=== PATIENT | male | born 1965 | race Two or more races ===

== ENCOUNTER 2025-05-31 10:22 | Inpatient (IN) | payer OTHER ==
[~2025-05-31] VITALS: Ht 165.1 cm; Wt 72.0 kg
[~2025-05-31 10:22] MED LIST: AMLO-257 PO
[2025-05-31 13:34] LABS: PLATELET COUNT (AUTO) 239 K/uL (150-450); RED BLOOD CELL COUNT(AUTO) 5.19 MIL/uL (4.50-5.90); RED CELL DISTRIBUTION WIDTH 14.2 % (11.5-14.5); WHITE BLOOD COUNT (AUTO) 4.9 K/uL (4.5-11.0)
[2025-05-31 13:59] LABS: CALCIUM, TOTAL 8.7 mg/dL (8.8-10.5); CREATININE 0.66 mg/dL (0.60-1.30); GLOMERULAR FILTR. RATE CALC > 60 mL/min (>60); GLUCOSE,RANDOM 100 mg/dL (70-110); SODIUM SERUM 140 mmol/L (136-145); UREA NITROGEN, BLOOD 11 mg/dL (7-18)
[2025-05-31 14:08] LABS: TROPONIN I-HIGH SENSITIVITY 34 ng/L (<76)
[2025-05-31] MEDS ORDERED: ZOLPIDEM TARTRATE 5 MG TABLET PO PRN (14:45)
[2025-05-31] MEDS ORDERED: MAGNESIUM HYDROXIDE SUSPENSION 30 ML UDCUP PO PRN (14:45)
[2025-05-31] MEDS ORDERED: ACETAMINOPHEN 325 MG TABLET PO PRN (14:45)
[2025-05-31 15:20] LABS: APPEARANCE,URINE CLEAR (CLEAR); GLUCOSE, URINE (UA) NEGATIVE (NEGATIVE); LEUKOCYTE ESTERASE ,URINE NEGATIVE (NEGATIVE); NITRATE,URINE NEGATIVE (NEGATIVE); OCCULT BLOOD,URINE NEGATIVE (NEGATIVE); SPECIFIC GRAVITIY, URINE 1.008 (1.003-1.030)
[2025-05-31] MEDS: LOSARTAN POTASSIUM 25 MG TABLET PO SCH (15:51)
[2025-05-31 16:01] VITALS: PULSE 74; RESP 18; O2SAT 98
[2025-05-31] MEDS: SODIUM CHLORIDE 3% 15 ML NEB SOLUTION NEB ONE (16:01)
[2025-05-31 21:44] VITALS: BP 135/90; PULSE 71; RESP 20; TEMP 98.2; O2SAT 97
[2025-06-01 04:43] VITALS: BP 130/78; PULSE 85; RESP 18; TEMP 97.9; O2SAT 96
[2025-06-01 08:57] VITALS: BP 135/87; PULSE 70; RESP 20; TEMP 98; O2SAT 96
[2025-06-01 13:01] LABS: MTB PCR w/Rif. Resistance-SPUT NOT DETECTED (Not Detectd)
[2025-06-01 17:25] LABS: MTB PCR w/Rif. Resistance-SPUT NOT DETECTED (Not Detectd)
[2025-06-01 20:00] VITALS: BP 145/81; PULSE 74; RESP 18; TEMP 98.2; O2SAT 97
[2025-06-02 08:59] VITALS: BP 149/84; PULSE 86; RESP 18; TEMP 98.2; O2SAT 100
[2025-06-02 19:50] VITALS: BP 157/83; PULSE 85; RESP 20; TEMP 98.2; O2SAT 95
[2025-06-03 05:46] VITALS: BP 140/88; PULSE 75; RESP 18; TEMP 97.9; O2SAT 97
[2025-06-03 07:51] VITALS: BP 141/79; PULSE 79; RESP 18; TEMP 98.1; O2SAT 96
[2025-06-03 16:29] VITALS: BP 120/87; PULSE 79; RESP 18; TEMP 98.4; O2SAT 97
[2025-06-03 19:47] VITALS: BP 145/87; PULSE 73; RESP 18; TEMP 97.9; O2SAT 97
[2025-06-04 05:49] VITALS: BP 136/84; PULSE 68; RESP 18; TEMP 97.3; O2SAT 96
[2025-06-04 07:04] LABS: PLATELET COUNT (AUTO) 240 K/uL (150-450); RED BLOOD CELL COUNT(AUTO) 5.27 MIL/uL (4.50-5.90); RED CELL DISTRIBUTION WIDTH 13.8 % (11.5-14.5); WHITE BLOOD COUNT (AUTO) 7.0 K/uL (4.5-11.0)
[2025-06-04 07:25] LABS: CREATININE 0.76 mg/dL (0.60-1.30); GLOMERULAR FILTR. RATE CALC > 60 mL/min (>60); GLUCOSE,RANDOM 98 mg/dL (70-110); SODIUM SERUM 139 mmol/L (136-145); UREA NITROGEN, BLOOD 15 mg/dL (7-18)
[2025-06-04 07:51] LABS: CALCIUM, TOTAL 8.6 mg/dL (8.8-10.5)
[2025-06-04 08:00] VITALS: BP 152/90; PULSE 81; RESP 19; TEMP 97; O2SAT 99
[2025-06-04] MEDS: HEPARIN SODIUM,PORCINE 5,000 UNITS/ML VIAL SQ SCH (15:55)
[2025-06-04 20:00] VITALS: BP 148/78; PULSE 80; RESP 20; TEMP 98.2; O2SAT 97
[2025-06-05 04:00] VITALS: BP 132/90; PULSE 86; RESP 18; TEMP 97.9; O2SAT 97
[2025-06-05 08:00] VITALS: BP 137/84; PULSE 68; RESP 20; TEMP 97.9; O2SAT 95
[2025-06-05] MEDS ORDERED: LOSA-381 PO (17:09)
[2025-06-05 19:47] VITALS: BP 152/80; PULSE 84; RESP 18; TEMP 98.6; O2SAT 97
[2025-06-06 06:07] LABS: QUANTIFERON+, Nil Value 0.04 IU/mL; QUANTIFERON+,Mitogen Value >10.00 IU/mL; QUANTIFERON+,TB1 Antigen Value 4.51 IU/mL; QUANTIFERON+,TB2 Antigen Value 4.53 IU/mL; QUANTIFERON, TB GOLD PLUS Positive (Negative)
== END 2025-06-05 20:48 | DRG 179 ==
LOC: EMS 10:24 → EDH 14:45 → 6S 21:22
PROVIDERS: ADMIT Internal Medicine; ATTEND Internal Medicine
DX: R76.11 Nonspecific reaction to tuberculin skin test without active tuberculosis (principal); I10 Essential (primary) hypertension; E05.90 Thyrotoxicosis, unspecified without thyrotoxic crisis or storm; Z78.9 Other specified health status
CPT/HCPCS: 71046; 71250; 80048; 81003; 84439; 84443; 84484; 85025; 86480; 87015; 87206; 87389; 87556; 93005; 94640; 99285; J1644; 36415-L1; 36415-TC